=== PATIENT | female | born 1965 | race American Indian/Alaskan Native ===

== ENCOUNTER 2018-07-25 08:23 | Outpatient (CLI) | payer OTHER ==
--- NOTE | 2018-07-25 10:02 | Mammography Report ---
Left mammogram and sonogram of the entire left breast: Compared to mammogram dated 06/19/18 and sonographic report obtained from outside. No previous mammogram prior to 06/19/18 available. History: Complex cyst left breast seen on sonogram of dated 05/12/15 at [facility] [place]. Findings: Left mammogram performed does not reveal any significant interval change compared to 06/19/18. Sonogram of the left breast reveals ill-defined hypoechoic mass with acoustic shadowing at 4:00 o'clock 4 cm from nipple, left breast. Measures 0.6 cm in transverse diameter and 0.69 cm in anteroposterior diameter. This is suspicious for neoplasm. There is a cyst identified in the left breast at 6:00 position 1 cm from nipple measuring 3.3 x 1.7 cm and appears to be benign. Impression: Hypoechoic mass 4:00 o'clock position left breast. Suspicious for neoplasm. Recommend ultrasound guided biopsy. BI-RADS CATEGORY: 4 = Suspicious ACR BI-RADS MAMMOGRAPHIC CODES: 0 = Needs additional imaging evaluation; 1 = Negative; 2 = Benign; 3 = Probably benign; 4 = Suspicious; 5 = Malignant; 6 = Known biopsy-proven malignancy COMMENT: 1. Dense breast tissue, i.e., adenosis, fibrocystic changes, etc., may obscure an underlying neoplasm. 2. Approximately 10% of cancers are not detected with mammography. 3. A negative mammography report should not delay biopsy if a clinically suspicious mass is present. COMMENT: Patient follow-up letters are generated in [employer].
== END 2018-07-25 08:24 | disposition home or self-care (01) ==
LOC: SPVWC 08:23
PROVIDERS: ATTEND Advanced Practice Midwife
DX: N63.23 Unspecified lump in the left breast, lower outer quadrant (principal)

== ENCOUNTER 2018-08-21 12:42 | Outpatient (CLI) | payer OTHER ==
--- NOTE | 2018-08-21 15:52 | Ultrasound Report ---
ULTRASOUND GUIDED NEEDLE CORE BIOPSY LEFT BREAST WITH CLIP PLACEMENT: 08/21/18 13:00:00 CLINICAL: Left breast mass at 4 o'clock 4 cm from the nipple. COMPARISON :07/25/18 FINDINGS: The procedure was explained to the patient and informed consent was obtained. Ultrasound demonstrated the previously described irregular solid hypoechoic mass.. I marked the breast with a felt tip marker and a time out was called. The skin was prepped with Betadine and anesthetized with 1% lidocaine. Needle core biopsy was performed through a tiny dermatotomy using ultrasound guidance, 2% lidocaine with epinephrine for deep anesthesia and a 14-gauge Achieve biopsy device. 5 cores were obtained and placed in formalin. A clip was deployed within the mass. The patient tolerated the procedure well and there were no apparent complications. Hemostasis was achieved with minimal pressure and a sterile dressing was applied. A two view mammogram demonstrated satisfactory deployment of the clip. However, no mammographic mass is identified at the clip. She left the department in good condition and was given instructions for wound care and followup. IMPRESSION: Uncomplicated ultrasound guided needle core biopsy with clip placement left breast.
--- NOTE | 2018-08-21 15:54 | Mammography Report ---
LEFT DIGITAL DIAGNOSTIC MAMMOGRAM: 08/21/18 12:42:00 CLINICAL: For clip placement immediately status post ultrasound biopsy. COMPARISON:07/25/18 FINDINGS: A biopsy clip is now identified at 3 o'clock and it correlates with the mass by ultrasound. IMPRESSION: Concordant clip placement status post ultrasound biopsy. BI-RADS CATEGORY: 4--Suspicious Pathology pending.
== END 2018-08-21 12:43 | disposition home or self-care (01) ==
LOC: SPVWC 12:42
PROVIDERS: ATTEND Advanced Practice Midwife
DX: N63.23 Unspecified lump in the left breast, lower outer quadrant (principal)
CPT/HCPCS: 88305

== ENCOUNTER 2020-10-26 11:15 | Outpatient (CLI) | payer OTHER ==
--- NOTE | 2020-10-26 13:28 | Mammography Report ---
DIGITAL SCREENING MAMMOGRAM WITH TOMOSYNTHESIS WITH CAD, 10/26/2020 CLINICAL INFORMATION / INDICATION: Screening TECHNIQUE: Digital bilateral 2D and 3D mammography with tomosynthesis was obtained in the craniocaud al and mediolateral oblique projections. Computer-Aided Detection (CAD) analysis was used for interp retation of this study. COMPARISON: Bilateral mammogram 06/19/2018, left mammogram 07/25/2018, left mammogram postbiopsy to 20 01/11/2019 FINDINGS: Breast Density: The breasts are heterogeneously dense, which may obscure small masses. No dominant mass, suspicious calcifications, or architectural distortion in either breast. Left biopsy changes are again seen. Left nodularity is decreased. IMPRESSION: No mammographic evidence of malignancy. Follow up recommendation: Routine yearly BI-RADS Category 2: Benign. A "normal" or negative report should not discourage follow up or biopsy of a clinically significant f inding. A written summary of these findings will be mailed to the patient. The patient will be entered into a mammography reporting system which will generate a reminder letter for the patient's next appointmen t at the appropriate interval. The [employer] recommends yearly mammograms starting at age 40 and continuing as l augustin as a woman is in good health. Breast MRI is recommended for women with an approximate 20-25% or greater lifetime risk of breast cancer, including women with a strong family history of breast or [place]va [place] cancer or who have been treated for Hodgkin's disease. Signer Name: Enrique Dejesus MD Signed: 10/26/2020 1:23 PM Workstation Name: [id number]
== END 2020-10-26 11:16 | disposition home or self-care (01) ==
LOC: SPVWC 11:15
PROVIDERS: ATTEND Advanced Practice Midwife
DX: Z12.31 Encounter for screening mammogram for malignant neoplasm of breast (principal)
CPT/HCPCS: 77063; 77067